=== PATIENT | male | born 1940 ===

== ENCOUNTER 2018-12-26 17:18 | Emergency (ER) | payer BC, MEDICARE ==
--- NOTE | 2018-12-26 18:29 | ED PDOC ---
HPI: General Adult Time Seen by Provider: 12/26/18 18:15 Chief Complaint (Nursing): Fever Chief Complaint (Provider): FEVER History Per: Patient History/Exam Limitations: no limitations Onset/Duration Of Symptoms: Days Have you had recent travel within the past 21 days to any of the following countries: [place], [place], [place] or [place]?: No Current Symptoms Are (Timing): Still Present Severity: Mild Pain Scale Rating Of: 5 Additional History Per: Patient Additional Complaint(s): 78 Y/O MALE CAME INTO THE ED WITH A 3 DAYS HX OF FEVER FOR 3 DAYS, BOD YACHES AND COUGH, POOR APETITE. PT STATES HE HAS BEEN DRINKING WATER BUT HAS POOR APPETITE. PT DENIES NAUSEA, VOMITING, SOB, CHEST PAIN, DIARRHEA, SICK CONTACTS. Past Medical History Vital Signs: Last Vital Signs Temp 101 F H 12/26/18 17:46 Pulse 109 H 12/26/18 17:46 Resp 18 12/26/18 17:46 BP 146/73 12/26/18 17:46 Pulse Ox 95 12/26/18 17:46 - Medical History PMH: Diabetes - Surgical History Surgical History: No Surg Hx - Family History Family History: States: Unknown Family Hx - Living Arrangements Living Arrangements: With Friends/Others - Social History Alcohol: Occasional Drugs: Denies - Immunization History Hx Tetanus Toxoid Vaccination: Yes Hx Influenza Vaccination: No Hx Pneumococcal Vaccination: No - Home Medications Home Medications: Ambulatory Orders Medication Instructions Recorded Amoxicillin/Clavulanate Pota 1 tab PO Q12 #20 tab 09/10/15 [Augmentin 875 mg-125 mg] Azithromycin 250 mg PO DAILY #4 tablet 12/26/18 - Allergies Allergies/Adverse Reactions: Allergies Allergy/AdvReac Type Severity Reaction Status Date / Time No Known Allergies Allergy Verified 09/10/15 13:32 Review of Systems Constitutional: Positive for: Fever, Chills. Negative for: Sweats, Weakness, Malaise, Weight loss Respiratory: Positive for: Cough (DRY ). Negative for: Shortness of Breath, SOB with Exertion, Wheezing Gastrointestinal: Negative for: Nausea, Vomiting, Abdominal Pain, Diarrhea, Co nstipation Neurological: Negative for: Weakness, Confusion Physical Exam - Reviewed Nursing Documentation Reviewed: Yes Vital Signs Reviewed: Yes - Physical Exam Appears: Positive for: Well, Non-toxic, No Acute Distress Head Exam: Positive for: ATRAUMATIC, NORMAL INSPECTION, NORMOCEPHALIC Skin: Positive for: Normal Color, Warm, DRY Eye Exam: Positive for: EOMI, Normal appearance, PERRL ENT: Positive for: Normal ENT Inspection Neck: Positive for: Normal, Painless ROM, Supple Cardiovascular/Chest: Positive for: Regular Rate, Rhythm Respiratory: Positive for: CNT, Normal Breath Sounds Pulses-Radial (L): 2+ Pulses-Radial (R): 2+ Gastrointestinal/Abdominal: Positive for: Normal Exam, Bowel Sounds (NORMACTIVE ), Soft. Negative for: Tenderness Back: Positive for: Normal Inspection. Negative for: L CVA Tenderness, R CVA Tenderness Extremity: Positive for: Normal ROM Neurological/Psych: Positive for: Awake, Alert, Normal Tone, Age Appropriate, Oriented - Laboratory Results Result Diagrams: 12/26/18 19:30 12/26/18 19:30 - ECG O2 Sat by Pulse Oximetry: 95 - Radiology X-Ray: Viewed By Me X-Ray Interpretation: No Acute Disease - Progress ED Course And Treament: INFLUENZA TYLENOL 650MG PO ACCUCHECK: 174 0: INFLUENZA NEGATIVE, ORDERED CBC, CMP, CXR AND URINE TO R/O OTHER SOURCES FOR FEVER. CBC BMP UA 0.9NS 1999: PT RE-EVALUATED AT THIS TIME, PT REPORTS FEELING BETTER. REPEAT TEMP: 100.2, PENDING UA. PT HANDED OFF TO [facility] TO FOLLOW UP ON UA. 2044: LABS REVIEWED BY ME, NO ACUTE FINDINGS, DUE TO FEVER PT WILL BE D/C ON ZITHROMAX FOR 5DAYS. FIRST DOSE TO BE GIVEN IN ED. PT CONTINUES TO FEEL GREAT. INSTRUCTED TO FOLLOW -UP WITH PMD IN 2-3 DAYS. PT GIVEN RETURN TO ED PRECAUTIONS. PT VERBALIZES UNDERSTANDING. Re-evaluation Time: 20:00 Condition: Improved Disposition - Clinical Impression Clinical Impression: Fever in adult, URI (upper respiratory infection) - Patient ED Disposition Is Patient to be Admitted: No Counseled Patient/Family Regarding: Diagnosis, Need For Followup, Rx Given - Disposition Referrals: Dulce Maria Chambers MD [Family Provider] - Disposition: Routine/Home Disposition Time: 20:00 Condition: GOOD Additional Instructions: FOLLOW-UP WITH PMD IN 2-3 DAYS Prescriptions: Azithromycin 250 mg PO DAILY #4 tablet Instructions: Fever, Adult (DC) Print Language: UZBEK - POA Present On Arrival: None
[2018-12-26] MEDS ORDERED: Sodium Chloride 0.9% 1,000 ML IV STA (19:11)
[2018-12-26 19:50] LABS: BASO % 0.4 % (0.0-2.0); HEMOGLOBIN 14.5 g/dL (12.0-18.0); LYMPH % 10.4 % (20.0-40.0); MEAN CELL VOLUME 88.7 fl (80.0-94.0); MEAN CORPUSCULAR HEMOGLOBIN 30.1 pg (27.0-31.0); MEAN CORPUSCULAR HGB CONC 33.9 g/dL (33.0-37.0); MEAN PLATELET VOLUME 9.7 fl (7.2-11.7); MONO # 1.2 K/uL (0.0-0.8); MONO % 11.8 % (0.0-10.0); NEUT # 7.6 K/uL (1.8-7.0); NEUT % 77.4 % (50.0-75.0); RBC 4.82 Mil/uL (4.40-5.90); RED CELL DISTRIBUTION WIDTH 14.5 % (11.5-14.5); WHITE BLOOD COUNT 9.9 K/uL (4.8-10.8)
[2018-12-26 20:01] LABS: ALB/GLOB RATIO 1.2 (1.0-2.1); ALBUMIN 4.3 g/dL (3.5-5.0); BLOOD UREA NITROGEN 22 mg/dl (9-20); CALCIUM 8.8 mg/dL (8.4-10.2); GFR NON-AFRICAN AMERICAN > 60
[2018-12-26 20:01] LABS: SQUAMOUS EPITHIAL < 1 /hpf (0-5); URINE BILIRUBIN NEGATIVE (NEGATIVE); URINE BLOOD SMALL (NEGATIVE); URINE CLARITY SLIGHTY-CLOUDY (Clear); URINE COLOR YELLOW (YELLOW); URINE GLUCOSE (UA) 50 mg/dL (NEGATIVE); URINE LEUKOCYTE ESTERASE NEG Leu/uL (Negative); URINE PROTEIN 100 mg/dL (NEGATIVE)
[2018-12-26 20:33] LABS: ALT/SGPT 28 U/L (21-72); AST/SGOT 43 U/L (17-59)
[2018-12-26 20:59] VITALS: BP 139/76; PULSE 84; RESP 16; TEMP 99.4; O2SAT 97
--- NOTE | 2018-12-27 13:05 | RAD ---
Date of service: 12/26/2018 HISTORY: COUGH COMPARISON: No prior studies available for comparison. TECHNIQUE: Chest PA and lateral views FINDINGS: LUNGS: No active pulmonary disease.. Mild left apical pleural thickening. PLEURA: No significant pleural effusion identified. No pneumothorax apparent. CARDIOVASCULAR: Mild aortic heart size within atherosclerotic calcification present. Range of normal. No pulmonary vascular congestion. OSSEOUS STRUCTURES: Minor multilevel degenerative spondylosis of the thoracic spine VISUALIZED UPPER ABDOMEN: Normal. OTHER FINDINGS: None. IMPRESSION: No active disease.
== END 2018-12-26 21:15 | disposition home or self-care (01) ==
LOC: H.ER 17:18
DX: J06.9 Acute upper respiratory infection, unspecified (principal); E11.9 Type 2 diabetes mellitus without complications
CPT/HCPCS: 71046; 80053; 81003; 82948; 85025; 87804; 96360; 99284; J7030